=== PATIENT | male | born 1980 ===

== ENCOUNTER 2021-05-30 13:47 | Inpatient (IN) | payer OTHER ==
[2021-05-30] MEDS ORDERED: LABETALOL 5 MG/ML VIAL MDV IVP STA ×2 (14:24→15:00)
--- NOTE | 2021-05-30 14:45 | ED ---
General Adult HPI <Paola Hernandez - Last Filed: 05/30/21 16:24> - General Source: patient, RN notes reviewed, old records reviewed Mode of arrival: ambulatory Limitations: no limitations <Baltazar Pantoja - Last Filed: 05/31/21 11:20> - General Chief complaint: Neuro Symptoms/Deficit Stated complaint: HTN, L Face Numb Drooping Time Seen by Provider: 05/30/21 14:22 - History of Present Illness Initial comments: Patient is a 40-year-old male with past medical history remarkable for uncontrolled hypertension and sinus infections presents emergency Department complaining of sudden onset left-sided facial weakness and numbness starting at 11 AM. I evaluated the patient approximately 2:30 PM. I evaluated him when he was placed in a room. He states this was sudden onset. He does have a history of uncontrolled hypertension for which she does not take medications. States he has had a previous reaction to IV antihypertensive medications. He is uncertain the name. He'll ice denies any fevers, chills, sick contacts, numbness and the rest of his extremities or weakness. Denies any dysphagia or difficulty swallowing. Denies any abdominal pain, nausea, vomiting. He has no other acute complaints at this time. Patient presents for strokelike symptoms. (Baltazar Pantoja) - Related Data Home Medications Medication Instructions Recorded Confirmed D-Methorphan/PE/Acetaminophen 1 cap PO DAILY PRN 05/30/21 05/30/21 [Vicks Dayquil Liquicaps] Unknown Otc Decongestant 1 tab PO DAILY PRN 05/30/21 05/30/21 Allergies Allergy/AdvReac Type Severity Reaction Status Date / Time No Known Allergies Allergy Verified 05/30/21 15:25 Review of Systems ROS Other: All systems not noted in ROS Statement are negative. <Paola Hernandez - Last Filed: 05/30/21 16:24> ROS Other: All systems not noted in ROS Statement are negative. <Baltazar Pantoja - Last Filed: 05/31/21 11:20> ROS Statement: Those systems with pertinent positive or pertinent negative responses have been documented in the HPI. Review of Systems: CONST: Denies fever EYES: Denies blurry vision ENT: Denies nasal congestion C/V: Denies Chest pain RESP: Denies shortness of breath GI: Denies abdominal pain : Denies dysuria SKIN: Denies rash. MSK: Denies joint pain. NEURO: Endorses face numbness, facial droop on the left. (Baltazar Pantoja) Past Medical History Past Medical History: Hypertension History of Any Multi-Drug Resistant Organisms: None Reported Past Surgical History: No Surgical Hx Reported Past Psychological History: No Psychological Hx Reported Smoking Status: Never smoker Past Alcohol Use History: Rare Past Drug Use History: Marijuana - Past Family History Father Family Medical History: CVA/TIA <Baltazar Pantoja - Last Filed: 05/31/21 11:20> General Exam Limitations: no limitations <Baltazar Pantoja - Last Filed: 05/31/21 11:20> - General Exam Comments Initial Comments: General: Appears in no acute distress. HEAD: Normal with no signs of head trauma. EYES: PERRLA, EOMI, conjunctiva normal, no discharge. Pupils are 3 mm and equal bilaterally. ENT: Hearing grossly intact, normal oropharynx. RESPIRATORY: Clear breath sounds bilaterally. No wheezes, rales, or rhonchi. C/V: Regular rate and rhythm. S1 and S2 auscultated, no edema, peripheral pulses 2+ and intact throughout. Patient is hypertensive. ABD: Abd is soft, nontender, nondistended EXT: Normal range of motion, no obvious deformity SKIN: No rashes or lesions observed on exposed skin. NEURO: Alert and oriented 4. NIH is 3, 1. for sensory loss over the left face to light touch and 2 points for left-sided facial droop. Facial droop does involve the forehead as well as the eyelids on the left, making me suspicious for a peripheral nerve involvement with his current symptoms. GCS is 15. (Baltazar Pantoja) Course <Paola Hernandez - Last Filed: 05/30/21 16:24> Vital Signs 05/30/21 05/30/21 05/30/21 13:55 14:10 14:11 Temperature 98.1 F 98.1 F Pulse Rate 96 92 85 Respiratory 18 18 19 Rate Blood Pressure O2 Sat by Pulse 98 97 95 Oximetry 05/30/21 05/30/21 05/30/21 14:15 14:30 14:45 Temperature 98.1 F 98.1 F 98.1 F Pulse Rate 90 77 74 Respiratory 20 18 18 Rate Blood Pressure 255/188 229/187 249/162 O2 Sat by Pulse 97 97 96 Oximetry 05/30/21 05/30/21 05/30/21 15:00 15:15 15:30 Temperature 98.2 F 98.2 F 98.2 F Pulse Rate 68 70 67 Respiratory 24 7 L 12 Rate Blood Pressure 233/172 230/150 219/153 O2 Sat by Pulse 95 95 94 L Oximetry 05/30/21 05/30/21 05/30/21 15:45 16:00 16:15 Temperature 98.2 F Pulse Rate 66 64 74 Respiratory 19 7 L 21 Rate Blood Pressure 219/156 234/152 212/141 O2 Sat by Pulse 94 L 96 95 Oximetry 05/30/21 05/30/21 05/30/21 16:30 16:45 16:50 Temperature 98.3 F Pulse Rate 75 88 94 Respiratory 18 38 H 18 Rate Blood Pressure 202/141 202/132 181/118 O2 Sat by Pulse 96 96 96 Oximetry - Reevaluation(s) Reevaluation #1: Spoke with Dr. Castro who agreed to take the patient into the ICU 05/30/21 16:25 (Paola Hernandez) Medical Decision Making - Lab Data Result diagrams: 05/30/21 14:33 05/30/21 14:33 <Paola Hernandez - Last Filed: 05/30/21 16:24> - Lab Data Result diagrams: 05/31/21 04:28 05/31/21 04:28 - EKG Data -: EKG Interpreted by Ia <Baltazar Pantoja - Last Filed: 05/31/21 11:20> - Medical Decision Making Based on the patient's presentation and physical exam, I'm concerned for a stroke in this patient. He also appears to have a hypertensive urgency. She cut stroke was activated. He will be administered 10 mg of labetalol and reevaluated. CT imaging will be obtained in addition to stroke workup. Patient was in agreement this plan. I am suspicious for possible peripheral nerve rather than central cause for this, as the patient does have involvement of the forehead and the eyelids on the left. I spoke with Dr. Pelaez of neurointervention who was in agreement this plan. EKG showed normal sinus rhythm.Following multiple doses of labetalol, patient's blood pressure is minimally improved. EKG shows no signs of acute ischemia. Chest x-ray reveals no acute cardio pulmonary process. CT and CTA of the brain and neck revealed no acute intracranial abnormality and no acute blockage or occlusion. Laboratory studies are remarkable for an indeterminate troponin of 0.0-8. The remainder of the labs are unremarkable. On reevaluation, patient remains hypertensive despite ijeoma with labetalol. He'll be started on nicardipine drip at this time. Due to the nicardipine drip and hypertensive urgency I would like to admit the patient to ICU. I spoke with Dr. Castro who was in agreement this plan. I spoke with the primary care physician for the patient, Dr. Peterson who accepted the patient. I spoke with Dr. Pelaez who agreed that the risks outweighed the benefits far the patient in terms of TPA administration and will be held at this time. NIH remains 3. No acute intervention. Patient will be admitted for MRI and aspirin. I spoke with on-call neurology Dr. Adams who accepted the consult. Patient was therefore admitted to the ICU in serious condition. (Baltazar Pantoja) - Lab Data Lab Results 05/30/21 05/30/21 05/30/21 Range/Units 14:33 14:33 14:33 WBC 9.7 (3.8-10.6) k/uL RBC 5.41 (4.30-5.90) m/uL Hgb 17.1 (13.0-17.5) gm/dL Hct 49.3 (39.0-53.0) % MCV 91.2 (80.0-100.0) fL MCH 31.6 (25.0-35.0) pg MCHC 34.7 (31.0-37.0) g/dL RDW 12.8 (11.5-15.5) % Plt Count 215 (150-450) k/uL MPV 7.1 Neutrophils % 59 % Lymphocytes % 26 % Monocytes % 8 % Eosinophils % 3 % Basophils % 1 % Neutrophils # 5.7 (1.3-7.7) k/uL Lymphocytes # 2.6 (1.0-4.8) k/uL Monocytes # 0.8 (0-1.0) k/uL Eosinophils # 0.3 (0-0.7) k/uL Basophils # 0.1 (0-0.2) k/uL Manual Slide Review Performed RBC Morphology Normal PT 9.8 (9.0-12.0) sec INR 0.9 (<1.2) APTT 22.4 (22.0-30.0) sec Sodium 140 (137-145) mmol/L Potassium 3.5 (3.5-5.1) mmol/L Chloride 104 (98-107) mmol/L Carbon Dioxide 24 (22-30) mmol/L Anion Gap 12 mmol/L BUN 13 (9-20) mg/dL Creatinine 1.11 (0.66-1.25) mg/dL Est GFR (CKD-EPI)AfAm >90 (>60 ml/min/1.73 sqM) Est GFR (CKD-EPI)NonAf 83 (>60 ml/min/1.73 sqM) Glucose 93 (74-99) mg/dL Plasma Lactic Acid Keyur (0.7-2.0) mmol/L Calcium 10.2 (8.4-10.2) mg/dL Total Bilirubin 1.0 (0.2-1.3) mg/dL AST 33 (17-59) U/L ALT 34 (4-49) U/L Alkaline Phosphatase 114 (38-126) U/L Troponin I (0.000-0.034) ng/mL Total Protein 8.7 H (6.3-8.2) g/dL Albumin 5.1 H (3.5-5.0) g/dL Coronavirus (PCR) (Not Detectd) 05/30/21 05/30/21 05/30/21 Range/Units 14:33 14:33 16:02 WBC (3.8-10.6) k/uL RBC (4.30-5.90) m/uL Hgb (13.0-17.5) gm/dL Hct (39.0-53.0) % MCV (80.0-100.0) fL MCH (25.0-35.0) pg MCHC (31.0-37.0) g/dL RDW (11.5-15.5) % Plt Count (150-450) k/uL MPV Neutrophils % % Lymphocytes % % Monocytes % % Eosinophils % % Basophils % % Neutrophils # (1.3-7.7) k/uL Lymphocytes # (1.0-4.8) k/uL Monocytes # (0-1.0) k/uL Eosinophils # (0-0.7) k/uL Basophils # (0-0.2) k/uL Manual Slide Review RBC Morphology PT (9.0-12.0) sec INR (<1.2) APTT (22.0-30.0) sec Sodium (137-145) mmol/L Potassium (3.5-5.1) mmol/L Chloride (98-107) mmol/L Carbon Dioxide (22-30) mmol/L Anion Gap mmol/L BUN (9-20) mg/dL Creatinine (0.66-1.25) mg/dL Est GFR (CKD-EPI)AfAm (>60 ml/min/1.73 sqM) Est GFR (CKD-EPI)NonAf (>60 ml/min/1.73 sqM) Glucose (74-99) mg/dL Plasma Lactic Acid Keyur 1.3 (0.7-2.0) mmol/L Calcium (8.4-10.2) mg/dL Total Bilirubin (0.2-1.3) mg/dL AST (17-59) U/L ALT (4-49) U/L Alkaline Phosphatase (38-126) U/L Troponin I 0.028 (0.000-0.034) ng/mL Total Protein (6.3-8.2) g/dL Albumin (3.5-5.0) g/dL Coronavirus (PCR) Not Detected (Not Detectd) - EKG Data EKG Comments: 12-lead Electrocardiogram Interpretation Note EKG was reviewed and interpreted by myself. 12-lead ECG performed at 1412 is interpreted by me as revealing normal sinus rhythm at a rate of 80 beats per minute. [place] is normal. IA interval is 166 ms, QRS duration is 102 ms, QTc is 463 ms.. There were no ST or T wave abnormalities to suggest myocardial ischemia or injury. R wave progression across the precordium was satisfactory. By my interpretation this EKG is non-diagnostic for acute ischemia. (Baltazar Vallecillo) Disposition Is patient prescribed a controlled substance at d/c from ED?: No Decision to Admit Reason: Admit from EC Decision Date: 05/30/21 Decision Time: 16:25 <Paola Hernandez - Last Filed: 05/30/21 16:24> <Baltazar Pantoja - Last Filed: 05/31/21 11:20> Clinical Impression: Cerebrovascular accident (CVA), Transient cerebral ischemia, Hypertensive emergency Disposition: ADMITTED IP TO THIS HOSP Condition: Serious
[2021-05-30 14:46] LABS: ALT 34 U/L (4-49); AST 33 U/L (17-59); African American GFR (CKD) >90 (>60 ml/min/1.73 sqM); Albumin 5.1 g/dL (3.5-5.0); Alkaline Phosphatase 114 U/L (38-126); Anion Gap 12 mmol/L; Blood Urea Nitrogen 13 mg/dL (9-20); Calcium 10.2 mg/dL (8.4-10.2); Carbon Dioxide 24 mmol/L (22-30); Chloride 104 mmol/L (98-107); Glucose 93 mg/dL (74-99); Non-African American GFR(CKD) 83 (>60 ml/min/1.73 sqM); Potassium 3.5 mmol/L (3.5-5.1); Sodium 140 mmol/L (137-145); Total Protein 8.7 g/dL (6.3-8.2)
[2021-05-30 14:48] LABS: INR 0.9 (<1.2); Partial Thromboplastin Time 22.4 sec (22.0-30.0); Prothrombin Time 9.8 sec (9.0-12.0)
--- NOTE | 2021-05-30 14:54 | XR ---
EXAMINATION TYPE: XR chest 2V DATE OF EXAM: 05/30/2021 COMPARISON: NONE TECHNIQUE: PA and lateral views submitted. HISTORY: Altered mental status FINDINGS: The lungs are clear and there is no pneumothorax, pleural effusion, or focal pneumonia. Hypertrophi c change of the spine. Heart size mildly prominent. No overt failure. IMPRESSION: 1. No acute process. 2. Cardiomegaly.
[2021-05-30 14:58] LABS: Basophils # (A) 0.1 k/uL (0-0.2); Basophils % (A) 1 %; Eosinophils # (A) 0.3 k/uL (0-0.7); Eosinophils % (A) 3 %; HCT 49.3 % (39.0-53.0); HGB 17.1 gm/dL (13.0-17.5); Lymphocytes # (A) 2.6 k/uL (1.0-4.8); Lymphocytes % (A) 26 %; MCH 31.6 pg (25.0-35.0); MCHC 34.7 g/dL (31.0-37.0); MCV 91.2 fL (80.0-100.0); Mean Platelet Volume 7.1; Monocytes # (A) 0.8 k/uL (0-1.0); Monocytes % (A) 8 %; Neutrophils # (A) 5.7 k/uL (1.3-7.7); Neutrophils % (A) 59 %; Platelet Count 215 k/uL (150-450); RBC 5.41 m/uL (4.30-5.90); RDW 12.8 % (11.5-15.5); WBC 9.7 k/uL (3.8-10.6)
[2021-05-30] MEDS ORDERED: LABETALOL SYRINGE 5 MG/ML IVP STA (15:00)
--- NOTE | 2021-05-30 15:01 | CT ---
EXAMINATION TYPE: CT brain wo con for TPA, CT angio head neck DATE OF EXAM: 05/30/2021 COMPARISON: None HISTORY: 40-year-old male neurologic deficit, acute, stroke suspected, Facial droop TECHNIQUE: Examination was done in axial plane without intravenous contrast. Coronal and sagittal r econstructions performed. Subsequent scanning through the head and neck after administration of 75 mL Isovue 370 IV contrast. Coronal and sagittal MIP reconstructions performed. 3-D reconstructions gene rated on a dedicated independent workstation. CT DLP: 1106.8 mGycm Automated exposure control for dose reduction was used. FINDINGS: HEAD: There is no evidence of acute intracranial hemorrhage, acute ischemic changes, mass, mass-effect, or extra-axial fluid collection. There is no effacement of cerebral sulci or basal subarachnoid cister ns. There is no hydrocephalus. There is no midline shift. Choi-white matter distinction is preserv ed. There is subtle patchy subcortical hypodensity scattered throughout the bilateral cerebral hemisphere s. Moderate mucosal thickening throughout the maxillary sinuses, also within the right ethmoid air cells . More moderate to severe left ethmoid air cells. Mastoid air cells well pneumatized. Orbits and glob es are intact. CTA HEAD: The left vertebral artery is dominant. There is mild smooth narrowing of the distal basilar artery. Hypoplastic P1 segments and bilateral posterior cerebral arteries with persistent origin of the bilateral fire patrol. The posterior circulation remains patent. The internal carotid arteries and remainder of the anterior circulation are patent. No aneurysmal change is seen. CTA NECK: Conventional arch vessel branching anatomy. Dominant left vertebral artery. The vertebral arteries are patent throughout their course. The right common and internal carotid arteries are widely patent by NASCET criteria. Retropharyngeal course of the right common carotid artery. The left common and internal carotid arteries are patent. Prominent tortuosity upper left cervical IC A. IMPRESSION: 1. HEAD: No acute intracranial abnormality seen. Mild patchy subcortical hypodensity is somewhat more than expected given patient's age. Correlate for mild burden of chronic small vessel ischemic diseas e. Demyelinating disease could be a differential consideration. Moderate to severe chronic ethmoid an d moderate chronic maxillary sinus disease. 2. CTA HEAD: Mild smooth stenosis/narrowing distal basilar artery. Normal variation with persistent f etal origin bilateral fire patrol. No large vessel intracranial arterial occlusion, significant stenosis, or aneurysmal change is seen. 3. CTA NECK: Dominant left vertebral artery. Otherwise, widely patent vertebral and carotid arteries of the neck.
[2021-05-30] MEDS ORDERED: ASPIRIN 325 MG TAB PO STA (15:08)
[2021-05-30] MEDS: niCARdipine 20 MG in SODIUM CHLORIDE 0.9% 192 ML IV SCH ×2 (15:54→18:49)
[2021-05-30] MEDS ORDERED: NALOXONE 0.4 MG/ML 1 ML VIAL IV PRN (16:26)
[2021-05-30 17:15] LABS: Glucose,Whole Blood 103 mg/dL (75-99)
[2021-05-30] MEDS ORDERED: LABETALOL 5 MG/ML VIAL MDV IVP ONE (21:00)
--- NOTE | 2021-05-30 22:23 | MR ---
EXAMINATION TYPE: MR brain wo/w con DATE OF EXAM: 05/30/2021 COMPARISON: None HISTORY: Onset of Left sided face drooping this AM - Hx of High Blood Pressure CONTRAST: Standard multiplanar, multisequence MRI departmental protocol utilizing 10ml mL intravenous Gadavist gadolinium contrast. Ventricles have normal size. There is no mass effect nor midline shift. Diffusion images show a singl e 4 mm focus of increased signal in the right posterior temporal lobe white matter. The brainstem is intact. There is abnormal increased signal in the fuad extending into the left cereb ral peduncle measuring up to 1 cm in thickness on the T2 and FLAIR images. There is on the T2 and FLAIR images patchy areas of increased signal in the white matter adjacent to the lateral ventricles that measures up to 1 cm in thickness. Total number of lesions is approximatel y 20. These are more concentrated in the posterior temporal lobes and occipital lobes. The corpus callosum is intact. The sella turcica is normal. There is no evidence of orbital mass. The re is mucosal thickening in the ethmoid and frontal sinuses. There is mucosal thickening in the maxil kae and sphenoid sinuses. Contrast images show normal enhancement of the venous sinuses. There is no pathologic intracranial en hancement. IMPRESSION: White matter high signal foci could relate to microvascular ischemia or demyelinating disease. Pansinusitis. Single focus of increased signal on the diffusion images right posterior temporal lobe could be acute lacunar infarct or demyelinating disease. Increased signal in the fuad and in midbrain that could be demyelinating disease or microvascular isc hemia.
[2021-05-30] MEDS: SODIUM CHLORIDE 0.9% 1,000 ML IV SCH (22:45)
--- NOTE | 2021-05-30 23:07 | P.HPIM ---
History of Present Illness H&P Date: 05/30/21 Chief Complaint: Left-sided facial droop Patient is a 40-year-old male with a known history of hypertension diagnosed about 2 years ago and is currently not taking any medications presents to ER as a code stroke with complaints of left-sided facial droop and numbness started around 11 AM today. Denied any weakness in the upper or lower extremities. Denied any swallowing difficulty or slurred speech. Denied any complaints of headache. States that he had previous issues with high blood pressure and had vision changes in the left eye. Patient was diagnosed with hypertension about 2 years ago and was also seen by cardiology. Patient states that he had 2D echocardiogram and was told he had thickened left ventricle. Denied any fever or chills. No neck stiffness. No recent illnesses. No complaints of chest pain or shortness of breath. No abdominal pain. No na usea or vomiting or diarrhea. CT angiogram of the head and neck showed no acute intracranial abnormality. Mild patchy subcortical hypodensity is somewhat more than expected given patient's age. Correlate for mild burden of chronic small vessel ischemic disease. Demyelinating disease could be in differential. 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 CTA head showed mild smooth stenosis narrowing distal basilar artery. No large vessel intracranial arterial occlusion, significant stenosis or aneurysmal changes seen. CTA neck showed dominant left vertebral artery otherwise widely patent vertebral and carotid arteries of the neck. Chest x-ray showed no acute process. Cardiomegaly. EKG showed normal sinus rhythm with heart rate 80 Initial blood pressure was 255/188 with pulse of 90 and pulse ox 98% on room air. Patient was given labetalol IV 10 mg x 2 while in the ER. Laboratory showed WBC 9.7 hemoglobin 17.1 and platelets 215 Sodium 140 potassium 3.5 chloride 104 BUN 39 creatinine 1.11 Albumin 5.1 and liver enzymes not elevated and troponin 0 0.028 and COVID-19 PCR not detected. Review of Systems Constitutional: Patient denies any fever or chills . No generalized weakness or weight loss. Abdomen: Patient denied nausea vomiting and diarrhea and abdominal pain. Cardiovascular: Patient denies any chest pain or short of breath no palpitations. Respiratory: patient denied any cough or sputum production. No shortness of breath Neurologic: Patient denied any numbness or tingling headache.Left-sided facial d leeann Musculoskeletal: Patient denies any complaints of joint swelling or deformity. Skin: Negative Psychiatric: Negative Endocrine: No heat or cold intolerance. No recent weight gain. Genitourinary: No dysuria or hematuria. All other 14 point ROS negative except the above Past Medical History Past Medical History: Hypertension History of Any Multi-Drug Resistant Organisms: None Reported Past Surgical History: No Surgical Hx Reported Smoking Status: Current some day smoker - Past Family History Father Family Medical History: CVA/TIA Medications and Allergies Home Medications Medication Instructions Recorded Confirmed Type D-Methorphan/PE/Acetaminophen 1 cap PO DAILY PRN 05/30/21 05/30/21 History [Vicks Dayquil Liquicaps] Unknown Otc Decongestant 1 tab PO DAILY PRN 05/30/21 05/30/21 History Allergies Allergy/AdvReac Type Severity Reaction Status Date / Time No Known Allergies Allergy Verified 05/30/21 15:25 Physical Exam Vitals: Vital Signs Temp Pulse Resp BP Pulse Ox 05/30/21 22:15 82 18 147/112 97 05/30/21 21:30 165/111 05/30/21 21:00 150/104 05/30/21 20:45 92 23 151/98 95 05/30/21 20:30 94 26 H 152/105 94 L 05/30/21 20:15 92 28 H 168/112 96 05/30/21 20:00 97.3 F L 89 20 155/106 97 05/30/21 19:45 85 21 154/94 94 L 05/30/21 19:30 85 15 162/101 95 05/30/21 18:00 70 8 L 128/74 94 L 05/30/21 17:45 73 17 149/98 96 05/30/21 17:30 91 24 184/102 95 05/30/21 17:21 98.3 F 18 05/30/21 17:16 92 21 97 05/30/21 17:00 181/118 05/30/21 16:50 94 18 181/118 96 05/30/21 16:45 88 38 H 202/132 96 05/30/21 16:30 98.3 F 75 18 202/141 96 05/30/21 16:15 74 21 212/141 95 05/30/21 16:00 98.2 F 64 7 L 234/152 96 05/30/21 15:45 66 19 219/156 94 L 05/30/21 15:30 98.2 F 67 12 219/153 94 L 05/30/21 15:15 98.2 F 70 7 L 230/150 95 05/30/21 15:00 98.2 F 68 24 233/172 95 05/30/21 14:45 98.1 F 74 18 249/162 96 05/30/21 14:30 98.1 F 77 18 229/187 97 05/30/21 14:15 98.1 F 90 20 255/188 97 05/30/21 14:11 85 19 95 05/30/21 14:10 98.1 F 92 18 97 05/30/21 13:55 98.1 F 96 18 98 Intake and Output 05/30/21 05/30/21 05/30/21 06:59 14:59 22:59 Intake Total 923.000 Output Total 550 Balance 373.000 Intake: Intake, IV Titration 243.000 Amount niCARdipine 20 mg In 243.000 Sodium Chloride 0.9% 192 ml @ 5 MG/HR 50 mls/hr IV .Q4H [facility] Rx#:[id number] Oral 680 Output: Urine 550 Other: # Voids 1 Weight 97.9 kg 97.976 kg PHYSICAL EXAMINATION: Patient is lying in the bed comfortably, no acute distress, awake alert and oriented.. HEENT: Normocephalic. Neck is supple. Pupils reactive. Nostrils clear. Oral cavity is moist. Neck reveals no JVD, carotid bruits, or thyromegaly. CHEST EXAMINATION: Trachea is central. Symmetrical expansion. Lung wayne clear to auscultation and percussion. CARDIAC: Normal S1, S2 with no gallops. No murmurs ABDOMEN: Soft. Bowel sounds normal. No organomegaly. No abdominal bruits. Extremities: reveal no edema. No clubbing or cyanosis Neurologically awake, alert, oriented x3 Patient does have left-sided facial droop with minimal loss of nasolabial fold. No slurred speech. Muscle strength 5 out of 5 all 4 extremities. Skin: No rash or skin lesions. Psychiatric: Cooperative. Nonsuicidal Musculoskeletal: No joint swelling or deformity. Normal range of motion. Results CBC & Chem 7: 05/30/21 14:33 05/30/21 14:33 Labs: Abnormal Lab Results - Last 24 Hours (Table) 11/01/21 11/01/21 Range/Units 14:33 17:13 POC Glucose (mg/dL) 103 H (75-99) mg/dL Total Protein 8.7 H (6.3-8.2) g/dL Albumin 5.1 H (3.5-5.0) g/dL Thrombosis Risk Factor Assmnt - DVT/VTE Prophylaxis DVT/VTE Prophylaxis: Mechanical Prophylaxis ordered Assessment and Plan Assessment: Hypertensive emergency with left-sided facial droop Possible acute CVA History of hypertension and currently not taking any medications GI and DVT prophylaxis Plan: Patient will be continued on telemetry monitoring. Was given labetalol 10 mg IV push x2 while in the ER. Systolic blood pressure readings still in the 220s. Patient was started on nicardipine drip and titrate down blood pressure slowly. Neurology was consulted due to possible acute CVA. Patient will be transferred to MICU for close monitoring. Continue to follow. Discussed with the patient and his mother at bedside in detail. Time with Patient: Greater than 30
[2021-05-31] MEDS: niCARdipine 20 MG in SODIUM CHLORIDE 0.9% 192 ML IV SCH ×4 (01:56→13:53)
[2021-05-31 05:03] LABS: Basophils # (A) 0.1 k/uL (0-0.2); Basophils % (A) 1 %; Eosinophils # (A) 0.3 k/uL (0-0.7); Eosinophils % (A) 3 %; HGB 14.9 gm/dL (13.0-17.5); Lymphocytes # (A) 2.3 k/uL (1.0-4.8); Lymphocytes % (A) 24 %; MCH 31.8 pg (25.0-35.0); MCHC 34.6 g/dL (31.0-37.0); MCV 91.9 fL (80.0-100.0); Monocytes # (A) 0.7 k/uL (0-1.0); Monocytes % (A) 7 %; Neutrophils # (A) 6.2 k/uL (1.3-7.7); Neutrophils % (A) 64 %; Platelet Count 196 k/uL (150-450); RBC 4.68 m/uL (4.30-5.90); RDW 12.6 % (11.5-15.5); WBC 9.7 k/uL (3.8-10.6)
[2021-05-31 05:15] LABS: African American GFR (CKD) >90 (>60 ml/min/1.73 sqM); Anion Gap 7 mmol/L; Blood Urea Nitrogen 11 mg/dL (9-20); Carbon Dioxide 25 mmol/L (22-30); Chloride 104 mmol/L (98-107); Glucose 86 mg/dL (74-99); Non-African American GFR(CKD) >90 (>60 ml/min/1.73 sqM); Potassium 3.4 mmol/L (3.5-5.1); Sodium 136 mmol/L (137-145)
[2021-05-31] MEDS ORDERED: Potassium Replacement Protocol 1 EACH MISC MISCELLANE PRN (06:08)
[2021-05-31] MEDS: POTASSIUM CHLORIDE ER 20 MEQ TAB.ER PO SCH ×2 (06:22→09:34)
[2021-05-31] MEDS: carvediloL 6.25 MG TAB PO SCH ×2 (09:34→16:28)
[2021-05-31] MEDS: LOSARTAN-HCTZ 50-12.5 MG 1 EACH TAB PO SCH (09:34)
--- NOTE | 2021-05-31 09:47 | P.CNNES ---
History of Present Illness Consult date: 05/30/21 Requesting physician: Baltazar Pantoja Reason for Consult: CVA, possible duron's palsy History of Present Illness: Patient is a 40-year-old male with history of hypertension, noncompliant with medications, came to the hospital today at 1:47 PM for evaluation of left facial weakness. Patient states he woke up at 11 AM his morning and noticed that he could not raise his left eyebrow up. He denied any slurred speech, facial droop, double vision or any new loss of vision. Patient denies any headache, any change in taste sensation, any excessive watering of the eyes or any hearing loss or muffled hearing on excessive hearing. He does have some sinus congestion for the last few days. Patient's NIH stroke scale was noted as 3 in the ED. Stroke code was activated. Was not a candidate for TPA because his symptoms have been present for more than 4.5 hours. Patient was given aspirin the ER. Vital signs on arrival blood pressure 255/188 which came down to 2229/187 and then 249/162. Temperature 98.1 pulse rate 96. Most recent blood pressure is 181/118. Computed tomography scan of head showed no acute process. Mild patchy subcortical hypodensity is somewhat more than expected given patient's age. Correlate for mild burden of chronic small vessel ischemic disease. Demyelinating disease could be a differential consideration. 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 CTA of head showed mild smooth stenosis/narrowing distal basilar artery. Normal variation with a persistent origin bilateral [facility]. No large vessel intercranial arterial occlusion, significant stenosis or aneurysm. The area of the neck shows dominant left vertebral artery. Otherwise widely patent vertebral and carotid arteries of the neck. EKG shows normal sinus rhythm, possible left atrial enlargement. Chest x-ray shows no acute process, cardiomegaly. Blood test shows normal CBC, PT/PTT, Chem-7 20. Troponin is negative. Mondragon virus PCR negative. Patient admitted to the ICU for hypertensive emergency. Patient was started on Cardene drip. His blood pressure has come down to 138/80. Patient 10 minutes ago felt woozy when he went to the bathroom. Once he laid down, he felt better, but just while I was checking him, he again felt dizzy, started sweating. Having some difficulty with word finding. Recommended to decrease the Cardene drip to keep blood pressure between 150-170 systolic at this point. Patient was diagnosed with hypertension 3-4 years ago. He stopped taking his blood pressure medications over a year ago because of no insurance. Patient states that he had suffered from a small stroke, which affected his vision in the left lower quadrant about 3 years ago. It was felt to be related to hypertension. He denies diabetes, does not know anything about cholesterol. He smokes marijuana little bit but has not done it for last few days. No other drugs. Review of Systems Patient denies headache, no double vision. No dysphagia, no chest pain, abdominal pain nausea vomiting diarrhea, no fever or chills. All other review of systems unremarkable. Past Medical History Past Medical History: Hypertension History of Any Multi-Drug Resistant Organisms: None Reported Past Surgical History: No Surgical Hx Reported Smoking Status: Current some day smoker - Past Family History Father Family Medical History: CVA/TIA Medications and Allergies Home Medications Medication Instructions Recorded Confirmed Type D-Methorphan/PE/Acetaminophen 1 cap PO DAILY PRN 05/30/21 05/30/21 History [Vicks Dayquil Liquicaps] Unknown Otc Decongestant 1 tab PO DAILY PRN 05/30/21 05/30/21 History Allergies Allergy/AdvReac Type Severity Reaction Status Date / Time No Known Allergies Allergy Verified 05/30/21 15:25 Physical Examination - Vital Signs Vital Signs: Vital Signs Temp Pulse Resp BP Pulse Ox 05/30/21 17:21 98.3 F 18 05/30/21 16:50 94 18 181/118 96 05/30/21 15:30 98.2 F 71 18 219/156 96 05/30/21 15:15 98.2 F 69 18 219/153 96 05/30/21 15:00 98.2 F 70 18 230/150 96 05/30/21 14:45 98.1 F 74 18 249/162 96 05/30/21 14:30 98.1 F 77 18 229/187 97 05/30/21 14:15 98.1 F 90 18 255/188 98 05/30/21 14:10 98.1 F 92 18 97 05/30/21 13:55 98.1 F 96 18 98 Intake and Output 05/30/21 05/30/21 05/30/21 06:59 14:59 22:59 Intake Total 48.75 Balance 48.75 Intake: Intake, IV Titration 48.75 Amount niCARdipine 20 mg In 48.75 Sodium Chloride 0.9% 192 ml @ 5 MG/HR 50 mls/hr IV .Q4H [facility] Rx#:[id number] Other: Weight 97.9 kg 97.976 kg Patient is a young male, Patient is alert awake oriented to time place and person. Speech and language functions are normal. Patient can name and repeat very well. Attention, concentration and fund of knowledge is adequate. Patient was having some word finding problems when he was feeling dizzy and sweating,. Once the Cardene drip was decreased, his symptoms improved. 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 Patient has left facial weakness, peripheral type, tongue protrudes to the midline. Palatal elevation and sensation normal, hearing and shoulder shrug normal, facial sensation normal. Shoulder shrug normal. On muscle strength testing, there is no pronator drift and the strength is normal in arms and legs distally and proximally. Deep tendon reflexes are brisk, 3 in both upper limbs, 3+ at bilateral knees, 2+ ankles and plantars are downgoing bilaterally. Sensory to touch is equal with no neglect. Cerebellar function showed no ataxia for [id number] testing. No ataxia for [id number] testing. No dysdiadochokinesia. Tone and bulk of muscles normal. Gait normal. On general examination, there is no carotid bruit or murmur, S1-S2 audible. Abdomen is soft nontender. Chest is clear. Peripheral pulses are present. No edema. Results - Laboratory Findings CBC and BMP: 05/31/21 04:28 05/31/21 04:28 Abnormal Lab Findings: Abnormal Labs 05/30/21 05/30/21 14:33 17:13 POC Glucose (mg/dL) 103 H Total Protein 8.7 H Albumin 5.1 H Assessment and Plan Assessment: * 40-year-old male with uncontrolled hypertension, presents with left facial weakness, peripheral type. Rest of the examination is nonfocal. Patient has severe, accelerated hypertension. Rule out CVA versus Duron's palsy. Patient denies any headache, alteration in taste sensation, excessive lacrimation or hyperacusis. However he does have sinus infection, which may suggest ?Duron's palsy. CVS still needs to be ruled out. * Hypertensive emergency * Chronic hypertension, uncontrolled * Paranasal sinusitis (involving ethmoid and maxillary sinuses) * Medication noncompliance. * Marijuana use. Plan: * Patient has been started on Cardene drip for hypertensive emergency. At present patient's blood pressure has dropped down to 138/80, patient started feeling dizzy, diaphoretic. Suggested to decrease Cardene drip slightly to keep systolic blood pressure between 150-170. Then may slowly bring blood pressure down over the next 24 hours. * MRI of the brain rule out CVA * Hold off on steroids and antiviral, until CVA ruled out by MRI. * Lipid panel, hemoglobin A1c * 2-D echo. * Urine drug screen. * Telemetry monitoring * Neurology will follow.
--- NOTE | 2021-05-31 10:11 | P.CNPUL ---
History of Present Illness Consult date: 05/31/21 Requesting physician: Jarrod Peterson Reason for consult: other (Critical care management) Chief complaint: Left-sided facial weakness and droop History of present illness: This is a very pleasant 40-year-old gentleman with a known history of hypertension and previous CVA symptoms with visual disturbances approximately 3 years ago. He does have a significant history of hypertension. He has been off medication for over a year now. He had follow-up with a past physician out of town. He could not afford medication. He believes he may have been on carvedilol. He presented to the emergency room yesterday with a sudden onset of left-sided facial weakness and numbness starting at 11 AM. He arrived to the ER at 2:30. No other complaints. No headache. No blurred vision. No extremity weakness. Initial blood pressure 229/187. He was given several doses of labetalol without much improvement. He was subsequent started on nicardipine drip. Code stroke was called. CT angiogram revealed no acute intracranial abnormalities. Mild stenosis/narrowing of the distal basilar artery. Dominant left vertebral artery however widely patent vertebral and carotid arteries. Chest x-ray revealed no acute pulmonary process. Noted cardiomegaly. MRI of the brain revealed white matter high signal foci could relate to microvascular ischemia or demyelinating disease. Parasinusitis. Single focus of increased signal on diffusion images right posterior temporal lobe could be acute lacunar infarct or demyelinating disease. Increased signal in the fuad and midbrain that could be demyelinating disease or microvascular ischemia. He was admitted to the intensive care unit and is seen today in consultation. Currently he is awake and alert in no acute distress. He denies any ongoing issues with tingling or numbness of his left face. No noted droop. He remains on a nicardipine drip at 5 mg per hour. 0.9 normal saline at 75 ML's per hour. Maintaining good O2 saturations in the 90s on room air. Current blood pressure 154/95 with a mean arterial pressure of 114. Review of Systems GENERAL EXAM: Alert, active, comfortable in no apparent distress. HEAD: Normocephalic. Sudden onset of left-sided facial tingling and numbness with a droop. EYES: Normal reaction of pupils, equal size. NOSE: Clear with pink turbinates. THROAT: No erythema or exudates. NECK: No masses, no JVD. CHEST: No chest wall deformity. LUNGS: Equal air entry with no crackles, wheeze, rhonchi or dullness. CVS: S1 and S2 normal with no audible murmur, regular rhythm. ABDOMEN: No hepatosplenomegaly, normal bowel sounds, no guarding or rigidity. SPINE: No scoliosis or deformity SKIN: No rashes CENTRAL NERVOUS SYSTEM: No focal deficits, tone is normal in all 4 extremities. EXTREMITIES: There is no peripheral edema. No clubbing, no cyanosis. Peripheral pulses are intact. Past Medical History Past Medical History: Hypertension History of Any Multi-Drug Resistant Organisms: None Reported Past Surgical History: No Surgical Hx Reported Smoking Status: Current some day smoker - Past Family History Father Family Medical History: CVA/TIA Medications and Allergies Home Medications Medication Instructions Recorded Confirmed Type D-Methorphan/PE/Acetaminophen 1 cap PO DAILY PRN 05/30/21 05/30/21 History [Vicks Dayquil Liquicaps] Unknown Otc Decongestant 1 tab PO DAILY PRN 05/30/21 05/30/21 History Allergies Allergy/AdvReac Type Severity Reaction Status Date / Time No Known Allergies Allergy Verified 05/30/21 15:25 Physical Exam Vitals: Vital Signs Temp Pulse Resp BP Pulse Ox 05/31/21 07:00 81 20 154/95 94 L 05/31/21 06:45 84 19 153/104 95 05/31/21 06:30 85 16 150/91 93 L 05/31/21 06:15 81 16 130/85 95 05/31/21 06:00 92 23 140/84 92 L 05/31/21 05:45 91 22 141/93 91 L 05/31/21 05:30 92 15 146/98 92 L 05/31/21 05:15 89 19 153/91 92 L 05/31/21 05:00 88 10 L 163/94 91 L 05/31/21 04:45 81 21 157/104 96 05/31/21 04:30 84 13 155/94 96 05/31/21 04:15 83 10 L 162/104 92 L 05/31/21 04:00 98 F 85 20 145/106 93 L 05/31/21 03:45 90 32 H 152/98 94 L 05/31/21 03:30 84 23 131/81 94 L 05/31/21 03:15 84 13 129/104 93 L 05/31/21 03:00 85 20 135/107 93 L 05/31/21 02:45 84 10 L 138/80 90 L 05/31/21 02:30 85 13 139/93 93 L 05/31/21 02:15 89 20 130/74 93 L 05/31/21 02:00 92 21 121/73 94 L 05/31/21 01:45 90 21 128/76 94 L 05/31/21 01:30 92 22 125/81 94 L 05/31/21 01:15 90 19 144/87 94 L 05/31/21 01:00 93 11 L 140/91 95 05/31/21 00:45 90 21 146/95 95 05/31/21 00:30 82 20 150/102 94 L 05/31/21 00:15 89 21 139/91 93 L 05/31/21 00:00 98 F 89 23 150/97 93 L 05/30/21 23:45 89 16 153/100 95 05/30/21 23:30 93 16 148/97 93 L 05/30/21 23:15 89 33 H 151/103 95 05/30/21 23:00 88 16 148/100 96 05/30/21 22:45 82 21 155/118 96 05/30/21 22:30 88 18 163/111 96 05/30/21 22:15 82 18 147/112 97 05/30/21 21:30 165/111 05/30/21 21:00 150/104 05/30/21 20:45 92 23 151/98 95 05/30/21 20:30 94 26 H 152/105 94 L 05/30/21 20:15 92 28 H 168/112 96 05/30/21 20:00 97.3 F L 89 20 155/106 97 05/30/21 19:45 85 21 154/94 94 L 05/30/21 19:30 85 15 162/101 95 05/30/21 18:00 70 8 L 128/74 94 L 05/30/21 17:45 73 17 149/98 96 05/30/21 17:30 91 24 184/102 95 05/30/21 17:21 98.3 F 18 05/30/21 17:16 92 21 97 05/30/21 17:00 181/118 05/30/21 16:50 94 18 181/118 96 05/30/21 16:45 88 38 H 202/132 96 05/30/21 16:30 98.3 F 75 18 202/141 96 05/30/21 16:15 74 21 212/141 95 05/30/21 16:00 98.2 F 64 7 L 234/152 96 05/30/21 15:45 66 19 219/156 94 L 05/30/21 15:30 98.2 F 67 12 219/153 94 L 05/30/21 15:15 98.2 F 70 7 L 230/150 95 05/30/21 15:00 98.2 F 68 24 233/172 95 05/30/21 14:45 98.1 F 74 18 249/162 96 05/30/21 14:30 98.1 F 77 18 229/187 97 05/30/21 14:15 98.1 F 90 20 255/188 97 05/30/21 14:11 85 19 95 05/30/21 14:10 98.1 F 92 18 97 05/30/21 13:55 98.1 F 96 18 98 Intake and Output 05/30/21 05/31/21 05/31/21 22:59 06:59 14:59 Intake Total 923.000 757 276.5 Output Total 550 850 Balance 373.000 -93 276.5 Intake: IV 600 75 Sodium Chloride 0.9% 1, 600 75 000 ml @ 75 mls/hr IV . [id number] [facility] Rx#:[id number] Intake, IV Titration 243.000 157 201.5 Amount niCARdipine 20 mg In 243.000 157 201.5 Sodium Chloride 0.9% 192 ml @ 5 MG/HR 50 mls/hr IV .Q4H [facility] Rx#:[id number] Oral 680 Output: Urine 550 850 Other: # Voids 1 0 0 Weight 97.976 kg 99.6 kg GENERAL EXAM: Alert, very pleasant 40, on room air, comfortable in no apparent distress. HEAD: Normocephalic. No noted left-sided facial droop this morning. EYES: Normal reaction of pupils, equal size. NOSE: Clear with pink turbinates. THROAT: No erythema or exudates. NECK: No masses, no JVD. CHEST: No chest wall deformity. LUNGS: Equal air entry with no crackles, wheeze, rhonchi or dullness. CVS: S1 and S2 normal with no audible murmur, regular rhythm. ABDOMEN: No hepatosplenomegaly, normal bowel sounds, no guarding or rigidity. SPINE: No scoliosis or deformity SKIN: No rashes CENTRAL NERVOUS SYSTEM: No focal deficits, tone is normal in all 4 extremities. EXTREMITIES: There is no peripheral edema. No clubbing, no cyanosis. Peripheral pulses are intact. Results - Laboratory Findings CBC and BMP: 05/31/21 04:28 05/31/21 04:28 PT/INR, D-dimer PT 9.8 sec (9.0-12.0) 05/30/21 14:33 INR 0.9 (<1.2) 05/30/21 14:33 Abnormal lab findings: Abnormal Labs 05/30/21 05/30/21 05/31/21 14:33 17:13 04:28 Sodium 136 L Potassium 3.4 L POC Glucose (mg/dL) 103 H Total Protein 8.7 H Albumin 5.1 H - Diagnostic Findings Chest x-ray: image reviewed Assessment and Plan Assessment: 1 Acute left-sided facial tingling, numbness, droop secondary to hypertensive emergency. Code stroke called 05/30/2021. MRI of the brain revealed a single focus of increased signal on the diffusion images right posterior temporal lobe could be acute lacunar infarct or demyelinating disease. Symptoms have resolved. 2 Severe accelerated hypertension. Currently on nicardipine drip at 5 mg per hour, improving. 3 History of hypertension, noncompliant with medication due to cost 4 History of marijuana use 5 Paranasal sinusitis Plan: The patient was seen and evaluated by Dr. Castro CAT scan, MRI, chest x-ray and labs reviewed Initiate losartan HCT 5012.5 daily, carvedilol 6.25 mg twice a day Discontinue nicardipine drip when BP stable Could be transferred out of the ICU later today Neurology is following We will continue to follow and make further recommendations based on his clinical status I, the cosigning physician, performed a history & physical examination of the patient. Lungs sounds are clear. Maintaining good O2 saturations in the 90s on room air. I discussed the assessment and plan of care with my nurse practitioner, Fern Mary. I attest to the above consultation as dictated by her. Time with Patient: Greater than 30
[2021-05-31 10:13] LABS: Urine Alcohol Negative (Negative); Urine Barbiturate Negative (Negative); Urine Cocaine Negative (Negative); Urine Methadone Negative (Negative); Urine Opiates Negative (Negative); Urine Phencyclidine Negative (Negative)
--- NOTE | 2021-05-31 11:00 | ECHOF ---
Referral Reason:hypertensive emergency MEASUREMENTS -------- HEIGHT: 167.6 cm WEIGHT: 99.3 kg BP: 154/95 RVIDd: 3.4 cm (< 3.3) IVSd: 1.7 cm (0.6 - 1.1) LVIDd: 5.2 cm (3.9 - 5.3) LVPWd: 1.7 cm (0.6 - 1.1) IVSs: 2.3 cm LVIDs: 3.4 cm LVPWs: 2.6 cm LA Diam: 3.9 cm (2.7 - 3.8) LAESV Index (A-L): 28.98 ml/m Ao Diam: 3.6 cm (2.0 - 3.7) AV Cusp: 2.2 cm (1.5 - 2.6) MV EXCURSION: 15.271 mm (> 18.000) MV EF SLOPE: 54 mm/s (70 - 150) EPSS: 1.2 cm MV E Octavio: 0.79 m/s MV DecT: 318 ms MV A Octavio: 1.00 m/s MV E/A Ratio: 0.79 AV maxP.65 mmHg AV meanP.27 mmHg FINDINGS -------- Sinus rhythm. This was a technically good study. The left ventricular size is normal. There is severe concentric left ventricular hypertrophy. Ove rall left ventricular systolic function is normal with, an EF between 60 - 65 %. The right ventricle is mildly enlarged. Normal LA size by volume 22+/-6 ml/m2. The right atrium is normal in size. Interatrial and interventricular septum intact. There is mild aortic valve sclerosis. Trace amount of aortic regurgitation. Peak/mean gradient a cross the Aortic Valve is 19.65mmHg / 10.27mmHg. The mitral valve is normal. The tricuspid valve appears structurally normal. Unable to estimate RVSP due to inadequate TR jet s pectral doppler profile. The pulmonic valve was not well visualized. The aortic root size is normal. Normal inferior vena cava with normal inspiratory collapse consistent with estimated right atrial pre ssure of 5 mmHg. There is no pericardial effusion. CONCLUSIONS -------- 1. The left ventricular size is normal. 2. There is severe concentric left ventricular hypertrophy. 3. Overall left ventricular systolic function is normal with, an EF between 60 - 65 %. 4. The right ventricle is mildly enlarged. 5. Normal LA size by volume 22+/-6 ml/m2. 6. There is mild aortic valve sclerosis. 7. Trace amount of aortic regurgitation. 8. Peak/mean gradient across the Aortic Valve is 19.65mmHg / 10.27mmHg. 9. There is no pericardial effusion. OBSTETRICS TECH: Holly Hurt RDCS
[2021-05-31] MEDS: SODIUM CHLORIDE 0.9% 1,000 ML IV SCH (11:29)
[2021-05-31 15:27] LABS: Chol/HDL Ratio 6.49 Ratio; HDL Cholesterol 32.8 mg/dL (40.00-60.00); LDL Cholesterol,Calculated 144.4 mg/dL (0.0-131.0); VLDL Calculation 35.8 mg/dL (5.00-40.00)
[2021-05-31] MEDS: ASPIRIN 325 MG TAB PO SCH (15:27)
--- NOTE | 2021-05-31 15:50 | P.PN ---
Subjective Progress Note Date: 05/31/21 Patient was seen for a follow-up. Patient denies any dizziness, no numbness tingling, no headache. No focal symptoms. Still with mild left facial droop. Objective - Vital Signs Vital signs: Vital Signs Temp 97.9 F 05/31/21 12:00 Pulse 70 05/31/21 15:00 Resp 22 05/31/21 15:00 BP 152/99 05/31/21 15:00 Pulse Ox 97 05/31/21 15:00 Intake & Output 05/30/21 05/31/21 05/31/21 18:59 06:59 18:59 Intake Total 764.047 9911 1176.667 Output Total 1400 975 Balance 400.000 -120 201.667 Weight 97.976 kg 99.6 kg Intake: IV 600 675 Sodium Chloride 0.9% 1, 600 675 000 ml @ 75 mls/hr IV . [id number] [facility] Rx#:[id number] Intake, IV Titration 200.000 200 261.667 Amount niCARdipine 20 mg In 200.000 200 261.667 Sodium Chloride 0.9% 192 ml @ 5 MG/HR 50 mls/hr IV .Q4H [facility] Rx#:[id number] Oral 200 480 240 Output: Urine 1400 975 Other: # Voids 1 0 0 - Exam Patient is a young pleasant male, in no acute distress. Patient is alert awake oriented to time place and person. Speech and language functions are normal. Attention, concentration and fund of knowledge is adequate. On cranial examination, pupils are round and reacting to light, visual wayne are full on confrontation, extraocular muscles are intact with no nystagmus. Face had left-sided weakness, mild degree, somewhat peripheral type. His tongue protrudes to the midline. Palatal elevation and sensation normal, hearing and shoulder shrug normal, facial sensation normal. Shoulder shrug normal. On muscle strength testing, there is no pronator drift and the strength is normal in arms and legs distally and proximally. Deep tendon reflexes are brisk, plantars downgoing. Sensory to touch is equal with no neglect. Cerebellar function showed no ataxia for [id number] testing. No dysdiadochokinesia. Tone and bulk of muscles normal. Gait normal. On general examination, there is no carotid bruit or murmur, S1-S2 audible. Abdomen is soft nontender. Chest is clear. Peripheral pulses are present. No edema. - Labs CBC & Chem 7: 05/31/21 04:28 05/31/21 04:28 Labs: Abnormal Lab Results - Last 24 Hours (Table) 05/30/21 05/30/21 05/31/21 Range/Units 17:13 20:15 04:28 Sodium 136 L (137-145) mmol/L Potassium 3.4 L (3.5-5.1) mmol/L POC Glucose (mg/dL) 103 H (75-99) mg/dL Triglycerides (0.00-149.00) mg/dL Cholesterol (0.00-200.00) mg/dL LDL Cholesterol, Calc (0.0-131.0) mg/dL HDL Cholesterol (40.00-60.00) mg/dL U Cannabinoids Screen Positive A (Negative) 05/31/21 Range/Units 04:28 Sodium (137-145) mmol/L Potassium (3.5-5.1) mmol/L POC Glucose (mg/dL) (75-99) mg/dL Triglycerides 179.00 H (0.00-149.00) mg/dL Cholesterol 213.00 H (0.00-200.00) mg/dL LDL Cholesterol, Calc 144.4 H (0.0-131.0) mg/dL HDL Cholesterol 32.80 L (40.00-60.00) mg/dL U Cannabinoids Screen (Negative) Assessment and Plan Assessment: * Acute ischemic infarction, probable lacunar-type involving the right posterior temporal lobe. Patient has presented with left facial weakness. * Hypertensive emergency * Chronic hypertension, uncontrolled * Hyperlipidemia * Paranasal sinusitis (involving ethmoid and maxillary sinuses) * Medication noncompliance. * Marijuana use. Plan: * Patient is off Cardene drip. Blood pressure is well controlled. He is not symptomatic. Patient started on carvedilol and Hyzaar. * MRI of the brain positive for an acute stroke, probably small lacunar type involving the right posterior temporal lobe. Also showed some small vessel disease particularly in the fuad and periventricular white matter. * No indications for steroids, as that facial weakness is most likely due to acute CVA * Lipid panel with cholesterol 213, LDL 144, HDL 32.8 and triglycerides 179. Patient will be started on Lipitor 40 mg daily. * Hemoglobin A1c pending * 2-D echo revealed normal left-ventricular size. Severe left ventricular hypertrophy. EF is between 60-65%. Normal left atrial size. * Urine drug screen only positive for cannabinoids. * Continue Telemetry monitoring * Start PT and OT. * DVT prophylaxis with heparin subcu every 6 hours.
--- NOTE | 2021-05-31 21:03 | P.PN ---
Subjective Progress Note Date: 05/31/21 Patient is a 40-year-old male with a known history of hypertension diagnosed about 2 years ago and is currently not taking any medications presents to ER as a code stroke with complaints of left-sided facial droop and numbness started around 11 AM today. Denied any weakness in the upper or lower extremities. Denied any swallowing difficulty or slurred speech. Denied any complaints of headache. States that he had previous issues with high blood pressure and had vision changes in the left eye. Patient was diagnosed with hypertension about 2 years ago and was also seen by cardiology. Patient states that he had 2D echocardiogram and was told he had thickened left ventricle. Denied any fever or chills. No neck stiffness. No recent illnesses. No complaints of chest pain or shortness of breath. No abdominal pain. No nausea or vomiting or diarrhea. CT angiogram of the head and neck showed no acute intracranial abnormality. Mild patchy subcortical hypodensity is somewhat more than expected given patient's age. Correlate for mild burden of chronic small vessel ischemic disease. Demyelinating disease could be in differential. 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 CTA head showed mild smooth stenosis narrowing distal basilar artery. No large vessel intracranial arterial occlusion, significant stenosis or aneurysmal changes seen. CTA neck showed dominant left vertebral artery otherwise widely patent vertebral and carotid arteries of the neck. Chest x-ray showed no acute process. Cardiomegaly. EKG showed normal sinus rhythm with heart rate 80 Initial blood pressure was 255/188 with pulse of 90 and pulse ox 98% on room air. Patient was given labetalol IV 10 mg x 2 while in the ER. Laboratory showed WBC 9.7 hemoglobin 17.1 and platelets 215 Sodium 140 potassium 3.5 chloride 104 BUN 39 creatinine 1.11 Albumin 5.1 and liver enzymes not elevated and troponin 0 0.028 and COVID-19 PCR not detected. 05-31 Patient is in the MICU. Lying in the bed comfortably. Awake alert oriented x3. Left-sided facial droop with slight improvement. Blood pressure is well controlled nicardipine drip has been discontinued. Patient was transitioned to hydrochlorothiazide/lisinopril and Coreg. MRI of the brain showed single focus of increased signal on the diffusion images right posterior temporal lobe could be acute lacunar infarct or demyelinating disease. However data reviewed. Potassium was replaced. Triglycerides 179 total cholesterol 213 and LDL 144 TSH and cortisol with enlargements. UDS is positive for cannabinoids. Neurology and pulmonary is on board. Patient is being transferred out of ICU. Current medications reviewed. Objective - Vital Signs Vital signs: Vital Signs Temp 97.8 F 05/31/21 08:00 Pulse 75 05/31/21 11:15 Resp 10 L 05/31/21 11:15 BP 144/81 05/31/21 11:15 Pulse Ox 94 L 05/31/21 11:15 Intake & Output 05/30/21 05/31/21 05/31/21 18:59 06:59 18:59 Intake Total 894.343 6324 871.0 Output Total 1400 500 Balance 400.000 -120 371.0 Weight 97.976 kg 99.6 kg Intake: IV 600 375 Sodium Chloride 0.9% 1, 600 375 000 ml @ 75 mls/hr IV . [id number] JOHN Rx#:[id number] Intake, IV Titration 200.000 200 256.0 Amount niCARdipine 20 mg In 200.000 200 256.0 Sodium Chloride 0.9% 192 ml @ 5 MG/HR 50 mls/hr IV .Q4H JOHN Rx#:[id number] Oral 200 480 240 Output: Urine 1400 500 Other: # Voids 1 0 0 - Exam PHYSICAL EXAMINATION: Patient is lying in the bed comfortably, no acute distress, awake alert and oriented.. HEENT: Normocephalic. Neck is supple. Pupils reactive. Nostrils clear. Oral c avity is moist. Neck reveals no JVD, carotid bruits, or thyromegaly. CHEST EXAMINATION: Trachea is central. Symmetrical expansion. Lung wayne clear to auscultation and percussion. CARDIAC: Normal S1, S2 with no gallops. No murmurs ABDOMEN: Soft. Bowel sounds normal. No organomegaly. No abdominal bruits. Extremities: reveal no edema. No clubbing or cyanosis Neurologically awake, alert, oriented x3 Patient does have left-sided facial droop with minimal loss of nasolabial fold. No slurred speech. Muscle strength 5 out of 5 all 4 extremities. Skin: No rash or skin lesions. Psychiatric: Cooperative. Nonsuicidal Musculoskeletal: No joint swelling or deformity. Normal range of motion. - Labs CBC & Chem 7: 05/31/21 04:28 05/31/21 04:28 Labs: Abnormal Lab Results - Last 24 Hours (Table) 05/30/21 05/30/21 05/30/21 Range/Units 14:33 17:13 20:15 Sodium (137-145) mmol/L Potassium (3.5-5.1) mmol/L POC Glucose (mg/dL) 103 H (75-99) mg/dL Total Protein 8.7 H (6.3-8.2) g/dL Albumin 5.1 H (3.5-5.0) g/dL U Cannabinoids Screen Positive A (Negative) 05/31/21 Range/Units 04:28 Sodium 136 L (137-145) mmol/L Potassium 3.4 L (3.5-5.1) mmol/L POC Glucose (mg/dL) (75-99) mg/dL Total Protein (6.3-8.2) g/dL Albumin (3.5-5.0) g/dL U Cannabinoids Screen (Negative) Assessment and Plan Assessment: 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 Hypertensive emergency History of hypertension and currently not taking any medications Marijuana use GI and DVT prophylaxis Plan: Patient will be continued on telemetry monitoring. Was given labetalol 10 mg IV push x2 while in the ER. Systolic blood pressure readings still in the 220s. Patient was started on nicardipine drip and titrate down blood pressure slowly. Neurology was consulted due to possible acute CVA.MRI showed small ischemic infarct right posterior temporal lobe. McCartan drip has been discontinued and patient was started on oral antihypertensives. Patient being transferred out of ICU. Neurology is on board.
[2021-05-31] MEDS: ATORVASTATIN 40 MG TAB PO SCH (21:09)
[2021-05-31] MEDS: HEPARIN SODIUM,PORCINE/PF 5,000 UNIT/0.5 ML SYRINGE SQ SCH (21:09)
[2021-05-31] MEDS ORDERED: ALPRAZolam 0.5 MG TAB PO PRN (23:02)
[2021-05-31] MEDS ORDERED: hydrALAZINE HCL 20 MG/ML 1 ML VIAL IVP PRN (23:03)
[2021-06-01 05:30] LABS: African American GFR (CKD) >90 (>60 ml/min/1.73 sqM); Anion Gap 8 mmol/L; Blood Urea Nitrogen 15 mg/dL (9-20); Calcium 9.3 mg/dL (8.4-10.2); Carbon Dioxide 24 mmol/L (22-30); Chloride 106 mmol/L (98-107); Glucose 90 mg/dL (74-99); Non-African American GFR(CKD) 86 (>60 ml/min/1.73 sqM); Potassium 4.2 mmol/L (3.5-5.1); Sodium 138 mmol/L (137-145)
[2021-06-01] MEDS: carvediloL 6.25 MG TAB PO SCH (06:32)
[2021-06-01] MEDS: HEPARIN SODIUM,PORCINE/PF 5,000 UNIT/0.5 ML SYRINGE SQ SCH ×2 (08:10→21:18)
[2021-06-01] MEDS: ASPIRIN 325 MG TAB PO SCH (08:10)
[2021-06-01] MEDS: niCARdipine 20 MG in SODIUM CHLORIDE 0.9% 192 ML IV SCH ×3 (08:10→08:23)
[2021-06-01] MEDS: LOSARTAN-HCTZ 50-12.5 MG 1 EACH TAB PO SCH (08:10)
[2021-06-01] MEDS: SODIUM CHLORIDE 0.9% 1,000 ML IV SCH (08:12)
[2021-06-01] MEDS ORDERED: carvediloL 6.25 MG TAB PO STA (09:14)
--- NOTE | 2021-06-01 10:53 | P.PN ---
Subjective Progress Note Date: 06/01/21 Principal diagnosis: Hypertensive emergency with left-sided facial droop This is a very pleasant 40-year-old gentleman with a known history of hypertension and previous CVA symptoms with visual disturbances approximately 3 years ago. He does have a significant history of hypertension. He has been off medication for over a year now. He had follow-up with a past physician out of town. He could not afford medication. He believes he may have been on carvedilol. He presented to the emergency room yesterday with a sudden onset of left-sided facial weakness and numbness starting at 11 AM. He arrived to the ER at 2:30. No other complaints. No headache. No blurred vision. No extremity weakness. Initial blood pressure 229/187. He was given several doses of labetalol without much improvement. He was subsequent started on nicardipine drip. Code stroke was called. CT angiogram revealed no acute intracranial abnormalities. Mild stenosis/narrowing of the distal basilar artery. Dominant left vertebral artery however widely patent vertebral and carotid arteries. Chest x-ray revealed no acute pulmonary process. Noted cardiomegaly. MRI of the brain revealed white matter high signal foci could relate to microvascular ischemia or demyelinating disease. Parasinusitis. Single focus of increased signal on diffusion images right posterior temporal lobe could be acute lacunar infarct or demyelinating disease. Increased signal in the fuad and midbrain that could be demyelinating disease or microvascular ischemia. He was admitted to the intensive care unit and is seen today in consultation. Currently he is awake and alert in no acute distress. He denies any ongoing issues with tingling or numbness of his left face. No noted droop. He remains on a ni cardipine drip at 5 mg per hour. 0.9 normal saline at 75 ML's per hour. Maintaining good O2 saturations in the 90s on room air. Current blood pressure 154/95 with a mean arterial pressure of 114. Patient is seen today 06/01/2021 in follow-up in the intensive care unit. He is currently resting quite comfortably in bed. Awake and alert in no acute distress. He had some issues with anxiety last night and did require Xanax. Today he is more calm and relaxed. Still somewhat hypertensive. Blood pressure 180s over 100 prior to his morning medications. He is maintaining good O2 saturations on room air. No IV fluids. Sodium 138. Potassium 4.2. Creatinine 1.08. His medications have been adjusted. He is currently on Hyzaar 5012.5 mg daily, Coreg 6.25 mg twice a day, hydralazine 10 mg IV every 4 hours as needed. He remains on aspirin. Statins. Objective - Vital Signs Vital signs: Vital Signs Temp 97.5 F L 06/01/21 08:00 Pulse 65 06/01/21 09:00 Resp 19 06/01/21 09:00 BP 180/138 06/01/21 09:00 Pulse Ox 95 06/01/21 09:00 Intake & Output 05/31/21 06/01/21 06/01/21 18:59 06:59 18:59 Intake Total 2351.667 1100 230.5 Output Total 1475 550 0 Balance 876.667 550 230.5 Weight 100.7 kg Intake: IV 900 900 150 Sodium Chloride 0.9% 1, 900 900 150 000 ml @ 75 mls/hr IV . [id number] JOHN Rx#:[id number] Intake, IV Titration 261.667 0 80.5 Amount niCARdipine 20 mg In 261.667 0 80.5 Sodium Chloride 0.9% 192 ml @ 5 MG/HR 50 mls/hr IV .Q4H JOHN Rx#:[id number] Oral 1190 200 Output: Urine 1475 550 0 Other: # Voids 0 - Exam GENERAL EXAM: Alert, very pleasant 40-year-old male patient, on room air, comfortable in no apparent distress. HEAD: Normocephalic. No noted left-sided facial droop this morning. EYES: Normal reaction of pupils, equal size. NOSE: Clear with pink turbinates. THROAT: No erythema or exudates. NECK: No masses, no JVD. CHEST: No chest wall deformity. LUNGS: Equal air entry with no crackles, wheeze, rhonchi or dullness. CVS: S1 and S2 normal with no audible murmur, regular rhythm. ABDOMEN: No hepatosplenomegaly, normal bowel sounds, no guarding or rigidity. SPINE: No scoliosis or deformity SKIN: No rashes CENTRAL NERVOUS SYSTEM: No focal deficits, tone is normal in all 4 extremities. EXTREMITIES: There is no peripheral edema. No clubbing, no cyanosis. Peripheral pulses are intact. - Labs CBC & Chem 7: 05/31/21 04:28 06/01/21 04:34 Labs: Abnormal Lab Results - Last 24 Hours (Table) 05/31/21 Range/Units 04:28 Triglycerides 179.00 H (0.00-149.00) mg/dL Cholesterol 213.00 H (0.00-200.00) mg/dL LDL Cholesterol, Calc 144.4 H (0.0-131.0) mg/dL HDL Cholesterol 32.80 L (40.00-60.00) mg/dL Assessment and Plan Assessment: 1 Acute left-sided facial tingling, numbness, droop secondary to hypertensive emergency. Code stroke called 05/30/2021. MRI of the brain revealed a single focus of increased signal on the diffusion images right posterior temporal lobe could be acute lacunar infarct or demyelinating disease. Symptoms have resolved. 2 Severe accelerated hypertension. Currently on nicardipine drip at 5 mg per hour, improving. 3 History of hypertension, noncompliant with medication due to cost 4 History of marijuana use 5 Paranasal sinusitis Plan: The patient was seen and evaluated by Dr. Castro Still somewhat hypertensive Continue losartan HCT 5012.5 daily Increase carvedilol to 12.5 mg twice a day Discontinue nicardipine drip Could be transferred out of the ICU later today Neurology is following We will continue to follow Educated regarding the importance of medication compliance I, the cosigning physician, performed a history & physical examination of the patient. Lungs sounds are clear. Maintaining good O2 saturations in the 90s on room air. I discussed the assessment and plan of care with my nurse practitioner, Fern Mary. I attest to the above note as dictated by her.
[2021-06-01] MEDS: hydrALAZINE HCL 25 MG TAB PO SCH ×2 (13:39→21:18)
--- NOTE | 2021-06-01 13:52 | P.PN ---
Subjective Progress Note Date: 06/01/21 Patient was seen for a follow-up. Patient denies any dizziness, no numbness tingling, no headache. No focal symptoms. Left facial droop much better. Patient's blood pressure is still being managed. Patient is off Cardene drip. Objective - Vital Signs Vital signs: Vital Signs Temp 97.7 F 06/01/21 12:00 Pulse 66 06/01/21 12:00 Resp 22 06/01/21 12:00 BP 183/117 06/01/21 12:00 Pulse Ox 97 06/01/21 12:00 Intake & Output 05/31/21 06/01/21 06/01/21 18:59 06:59 18:59 Intake Total 2351.667 1100 230.5 Output Total 1475 550 375 Balance 876.667 550 -144.5 Weight 100.7 kg Intake: IV 900 900 150 Sodium Chloride 0.9% 1, 900 900 150 000 ml @ 75 mls/hr IV . [id number] JOHN Rx#:[id number] Intake, IV Titration 261.667 0 80.5 Amount niCARdipine 20 mg In 261.667 0 80.5 Sodium Chloride 0.9% 192 ml @ 5 MG/HR 50 mls/hr IV .Q4H JOHN Rx#:[id number] Oral 1190 200 Output: Urine 1475 550 375 Other: # Voids 0 1 - Exam Patient is a young pleasant male, in no acute distress. Patient is alert awake oriented to time place and person. Speech and language functions are normal. Attention, concentration and fund of knowledge is adequate. On cranial examination, pupils are round and reacting to light, visual wayne are full on confrontation, extraocular muscles are intact with no nystagmus. Left facial weakness almost resolved. His tongue protrudes to the midline. Palatal elevation and sensation normal, hearing and shoulder shrug normal, facial sensation normal. Shoulder shrug normal. On muscle strength testing, there is no pronator drift and the strength is normal in arms and legs distally and proximally. Deep tendon reflexes are brisk, plantars downgoing. Sensory to touch is equal with no neglect. Cerebellar function showed no ataxia for [id number] testing. No dysdiadochokinesia. Tone and bulk of muscles normal. Gait normal. On general examination, there is no carotid bruit or murmur, S1-S2 audible. Abdomen is soft nontender. Chest is clear. Peripheral pulses are present. No edema. - Labs CBC & Chem 7: 05/31/21 04:28 06/01/21 04:34 Labs: Abnormal Lab Results - Last 24 Hours (Table) 05/31/21 Range/Units 04:28 Triglycerides 179.00 H (0.00-149.00) mg/dL Cholesterol 213.00 H (0.00-200.00) mg/dL LDL Cholesterol, Calc 144.4 H (0.0-131.0) mg/dL HDL Cholesterol 32.80 L (40.00-60.00) mg/dL Assessment and Plan Assessment: * Acute ischemic infarction, probable lacunar-type involving the right posterior temporal lobe. Patient has presented with left facial weakness. * Hypertensive emergency * Chronic hypertension, uncontrolled * Hyperlipidemia * Paranasal sinusitis (involving ethmoid and maxillary sinuses) * Medication noncompliance. * Marijuana use. Plan: * Patient is off Cardene drip. Blood pressure is well controlled. He is not symptomatic. Patient started on carvedilol, hydralazine and Hyzaar. * MRI of the brain positive for an acute stroke, probably small lacunar type inv olving the right posterior temporal lobe. Also showed some small vessel disease particularly in the fuad and periventricular white matter. * Patient's left facial weakness likely from CVA. Patient's facial weakness and much improved. No indication for steroids. * Continue aspirin 325 mg daily. * Lipid panel with cholesterol 213, LDL 144, HDL 32.8 and triglycerides 179. Patient will be started on Lipitor 40 mg daily. * Hemoglobin A1c 4.3 normal. * 2-D echo revealed normal left-ventricular size. Severe left ventricular hypertrophy. EF is between 60-65%. Normal left atrial size. * Urine drug screen only positive for cannabinoids. * Start PT and OT. * DVT prophylaxis with heparin subcu every 6 hours.
[2021-06-01] MEDS: carvediloL 12.5 MG TAB PO SCH (16:51)
[2021-06-01] MEDS: ATORVASTATIN 40 MG TAB PO SCH (21:18)
[2021-06-02] MEDS: carvediloL 12.5 MG TAB PO SCH ×2 (06:28→16:40)
[2021-06-02] MEDS: HEPARIN SODIUM,PORCINE/PF 5,000 UNIT/0.5 ML SYRINGE SQ SCH (09:13)
[2021-06-02] MEDS: hydrALAZINE HCL 25 MG TAB PO SCH ×2 (09:13→15:17)
[2021-06-02] MEDS: ASPIRIN 325 MG TAB PO SCH (09:13)
[2021-06-02] MEDS: LOSARTAN-HCTZ 50-12.5 MG 1 EACH TAB PO SCH (09:13)
[2021-06-02 11:17] VITALS: RESP 18
--- NOTE | 2021-06-02 13:22 | P.PN ---
Subjective Progress Note Date: 06/02/21 Patient was seen for a follow-up. Patient denies any dizziness, no numbness tingling, no headache. No focal symptoms. Left facial droop much better. Patient's blood pressure is still being managed. Patient is sitting in the chair, having his lunch. Objective - Vital Signs Vital signs: Vital Signs Temp 97.9 F 06/02/21 11:16 Pulse 65 06/02/21 11:16 Resp 18 06/02/21 11:16 BP 165/109 06/02/21 11:16 Pulse Ox 99 06/02/21 11:16 Intake & Output 06/01/21 06/02/21 06/02/21 18:59 06:59 18:59 Intake Total 230.5 600 Output Total 375 Balance -144.5 600 Weight 99.2 kg Intake: IV 150 Sodium Chloride 0.9% 1, 150 000 ml @ 75 mls/hr IV . [id number] JOHN Rx#:[id number] Intake, IV Titration 80.5 Amount niCARdipine 20 mg In 80.5 Sodium Chloride 0.9% 192 ml @ 5 MG/HR 50 mls/hr IV .Q4H JOHN Rx#:[id number] Oral 600 Output: Urine 375 Other: # Voids 1 1 # Bowel Movements 1 - Exam Patient is a young pleasant male, in no acute distress. Patient is alert awake oriented to time place and person. Speech and language functions are normal. Attention, concentration and fund of knowledge is adequate. On cranial examination, pupils are round and reacting to light, visual wayne are full on confrontation, extraocular muscles are intact with no nystagmus. Left facial weakness almost resolved. His tongue protrudes to the midline. Palatal elevation and sensation normal, hearing and shoulder shrug normal, facial sensation normal. Shoulder shrug normal. On muscle strength testing, there is no pronator drift and the strength is normal in arms and legs distally and proximally. Deep tendon reflexes are brisk, plantars downgoing. Sensory to touch is equal with no neglect. Cerebellar function showed no ataxia for [id number] testing. No dysdiadochokinesia. Tone and bulk of muscles normal. Gait normal. On general examination, there is no carotid bruit or murmur, S1-S2 audible. Abdomen is soft nontender. Chest is clear. Peripheral pulses are present. No edema. - Labs CBC & Chem 7: 05/31/21 04:28 06/01/21 04:34 Assessment and Plan Assessment: * Acute ischemic infarction, probable lacunar-type involving the right posterior temporal lobe. Patient has presented with left facial weakness. * Hypertensive emergency * Chronic hypertension, uncontrolled * Hyperlipidemia * Paranasal sinusitis (involving ethmoid and maxillary sinuses) * Medication noncompliance. * Marijuana use. Plan: * Patient is off Cardene drip. Blood pressure is well controlled. He is not symptomatic. Patient started on carvedilol, hydralazine and Hyzaar. * MRI of the brain positive for an acute stroke, probably small lacunar type involving the right posterior temporal lobe. Also showed some small vessel disease particularly in the fuad and periventricular white matter. * Patient's left facial weakness likely from CVA. Patient's facial weakness is much improved. No indication for steroids. * Continue aspirin 325 mg daily. * Lipid panel with cholesterol 213, LDL 144, HDL 32.8 and triglycerides 179. Patient will be started on Lipitor 40 mg daily. * Hemoglobin A1c 4.3 normal. * 2-D echo revealed normal left-ventricular size. Severe left ventricular hypertrophy. EF is between 60-65%. Normal left atrial size. * Urine drug screen only positive for cannabinoids. * Start PT and OT. * DVT prophylaxis with heparin subcu every 6 hours. * Neurologically clear for discharge.
--- NOTE | 2021-06-02 13:46 | P.PN ---
Subjective Progress Note Date: 06/01/21 Principal diagnosis: Acute CVA Accelerated essential hypertension Patient is a 40-year-old male with a known history of hypertension diagnosed about 2 years ago and is currently not taking any medications presents to ER as a code stroke with complaints of left-sided facial droop and numbness started around 11 AM today. Denied any weakness in the upper or lower extremities. D enied any swallowing difficulty or slurred speech. Denied any complaints of headache. States that he had previous issues with high blood pressure and had vision changes in the left eye. Patient was diagnosed with hypertension about 2 years ago and was also seen by cardiology. Patient states that he had 2D echocardiogram and was told he had thickened left ventricle. Denied any fever or chills. No neck stiffness. No recent illnesses. No complaints of chest pain or shortness of breath. No abdominal pain. No nausea or vomiting or diarrhea. CT angiogram of the head and neck showed no acute intracranial abnormality. Mild patchy subcortical hypodensity is somewhat more than expected given patient's age. Correlate for mild burden of chronic small vessel ischemic disease. Demyelinating disease could be in differential. 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 CTA head showed mild smooth stenosis narrowing distal basilar artery. No large vessel intracranial arterial occlusion, significant stenosis or aneurysmal changes seen. CTA neck showed dominant left vertebral artery otherwise widely patent vertebral and carotid arteries of the neck. Chest x-ray showed no acute process. Cardiomegaly. EKG showed normal sinus rhythm with heart rate 80 Initial blood pressure was 255/188 with pulse of 90 and pulse ox 98% on room air. Patient was given labetalol IV 10 mg x 2 while in the ER. Laboratory showed WBC 9.7 hemoglobin 17.1 and platelets 215 Sodium 140 potassium 3.5 chloride 104 BUN 39 creatinine 1.11 Albumin 5.1 and liver enzymes not elevated and troponin 0 0.028 and COVID-19 PCR not detected. 05-31 Patient is in the MICU. Lying in the bed comfortably. Awake alert oriented x3. Left-sided facial droop with slight improvement. Blood pressure is well controlled nicardipine drip has been discontinued. Patient was transitioned to hydrochlorothiazide/lisinopril and Coreg. MRI of the brain showed single focus of increased signal on the diffusion images right posterior temporal lobe could be acute lacunar infarct or demyelinating disease. However data reviewed. Potassium was replaced. Triglycerides 179 total cholesterol 213 and LDL 144 TSH and cortisol with enlargements. UDS is positive for cannabinoids. Neurology and pulmonary is on board. Patient is being transferred out of ICU. 06/01/21 Patient is lying in the bed comfortably. Right-sided facial weakness is much improved. Blood pressure is still elevated. Patient is being continued on Coreg, hydrochlorothiazide/lisinopril. Continue to titrate blood pressure medications. Patient underwent 2-D echocardiogram another stroke workup has been negative. Patient to will be continued on aspirin, statins. Patient is being transferred out of ICU today. Current medications reviewed. Objective - Vital Signs Vital signs: Vital Signs Temp 97.7 F 06/01/21 20:00 Pulse 70 06/01/21 20:00 Resp 16 06/01/21 20:00 BP 175/111 06/01/21 20:00 Pulse Ox 99 06/01/21 20:00 Intake & Output 06/01/21 06/01/21 06/02/21 06:59 18:59 06:59 Intake Total 1100 230.5 Output Total 550 375 Balance 550 -144.5 Weight 100.7 kg Intake: IV 900 150 Sodium Chloride 0.9% 1, 900 150 000 ml @ 75 mls/hr IV . [id number] JOHN Rx#:[id number] Intake, IV Titration 0 80.5 Amount niCARdipine 20 mg In 0 80.5 Sodium Chloride 0.9% 192 ml @ 5 MG/HR 50 mls/hr IV .Q4H JOHN Rx#:[id number] Oral 200 Output: Urine 550 375 Other: # Voids 1 # Bowel Movements 1 - Exam PHYSICAL EXAMINATION: Patient is lying in the bed comfortably, no acute distress, awake alert and oriented.. HEENT: Normocephalic. Neck is supple. Pupils reactive. Nostrils clear. Oral cavity is moist. Neck reveals no JVD, carotid bruits, or thyromegaly. CHEST EXAMINATION: Trachea is central. Symmetrical expansion. Lung wayne clear to auscultation and percussion. CARDIAC: Normal S1, S2 with no gallops. No murmurs ABDOMEN: Soft. Bowel sounds normal. No organomegaly. No abdominal bruits. Extremities: reveal no edema. No clubbing or cyanosis Neurologically awake, alert, oriented x3 Patient does have left-sided facial droop with minimal loss of nasolabial fold. No slurred speech. Muscle strength 5 out of 5 all 4 extremities. Skin: No rash or skin lesions. Psychiatric: Cooperative. Nonsuicidal Musculoskeletal: No joint swelling or deformity. Normal range of motion. - Labs CBC & Chem 7: 05/31/21 04:28 06/01/21 04:34 Assessment and Plan Assessment: 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 Hypertensive emergency History of hypertension and currently not taking any medications Marijuana use GI and DVT prophylaxis Plan: Patient will be continued on telemetry monitoring. Was given labetalol 10 mg IV push x2 while in the ER. Systolic blood pressure readings still in the 220s. Patient was started on nicardipine drip and titrate down blood pressure slowly. Neurology was consulted due to possible acute CVA.MRI showed small ischemic infarct right posterior temporal lobe. McCartan drip has been discontinued and patient was started on oral antihypertensives. Patient being transferred out of ICU. Neurology is on board.
[2021-06-02] MEDS ORDERED: amLODIPine 5 MG TAB PO SCH (14:00)
[2021-06-02] MEDS ORDERED: NIFEdipine XL 30 MG TAB.ER.24 PO SCH (14:15)
--- NOTE | 2021-06-02 14:35 | P.PN ---
Subjective Progress Note Date: 06/02/21 Principal diagnosis: hypertensive emergency with left-sided facial droop On 06/02/2021 patient seen in follow-up on selective care unit, he is resting comfortably in bed, hemodynamically he stable, his blood pressure is improved, he is not requiring any vasoactive drips, current blood pressure is 165/109, with a mean of 127, room air pulse ox is 98%, the patient denies any shortness of breath. No complaints of chest pain. Patient is currently on carvedilol 12.5 mg twice daily, Hyzaar 5012 0.5, and hydralazine was added at 25 mg by mouth 3 times daily. Addition patient was started on Procardia XL at 30 mg daily. She has been up out of bed, ambulated, tolerated activity well. Electrolytes and renal profile are within normal limits. Objective - Vital Signs Vital signs: Vital Signs Temp 97.9 F 06/02/21 11:16 Pulse 65 06/02/21 11:16 Resp 18 06/02/21 11:16 BP 165/109 06/02/21 11:16 Pulse Ox 99 06/02/21 11:16 Intake & Output 06/01/21 06/02/21 06/02/21 18:59 06:59 18:59 Intake Total 230.5 600 Output Total 375 Balance -144.5 600 Weight 99.2 kg Intake: IV 150 Sodium Chloride 0.9% 1, 150 000 ml @ 75 mls/hr IV . [id number] JOHN Rx#:[id number] Intake, IV Titration 80.5 Amount niCARdipine 20 mg In 80.5 Sodium Chloride 0.9% 192 ml @ 5 MG/HR 50 mls/hr IV .Q4H JOHN Rx#:[id number] Oral 600 Output: Urine 375 Other: # Voids 1 1 # Bowel Movements 1 - Exam GENERAL EXAM: Alert, very pleasant, 40-year-old, comfortable in no apparent distress. HEAD: Normocephalic/atraumatic. EYES: Normal reaction of pupils, equal size. Conjunctiva pink, sclera white. NOSE: Clear with pink turbinates. THROAT: No erythema or exudates. NECK: No masses, no JVD, no thyroid enlargement, no adenopathy. CHEST: No chest wall deformity. Symmetrical expansion. LUNGS: Equal air entry with on room air, with a pulse ox of 99 , no rales, no rhonchi CVS: Regular rate and rhythm, normal S1 and S2, no gallops, no murmurs, no rubs ABDOMEN: Soft, nontender. No hepatosplenomegaly, normal bowel sounds, no guarding or rigidity. EXTREMITIES: No clubbing, no edema, no cyanosis, 2+ pulses and upper and lower extremities. MUSCULOSKELETAL: Muscle strength and tone normal. SPINE: No scoliosis or deformity SKIN: No rashes CENTRAL NERVOUS SYSTEM: Alert and oriented -3. No focal deficits, tone is normal in all 4 extremities. PSYCHIATRIC: Alert and oriented -3. Appropriate affect. Intact judgment and insight. - Labs CBC & Chem 7: 05/31/21 04:28 06/01/21 04:34 Assessment and Plan Plan: Aassessment: 1 Acute left-sided facial tingling, numbness, droop secondary to hypertensive emergency. Code stroke called 05/30/2021. MRI of the brain revealed a single focus of increased signal on the diffusion images right posterior temporal lobe could be acute lacunar infarct or demyelinating disease. Symptoms have resolved. 2 Severe accelerated hypertension. Currently on nicardipine drip at 5 mg per hour, improving. 3 History of hypertension, noncompliant with medication due to cost 4 History of marijuana use 5 Paranasal sinusitis Plan: Blood pressure has improved, however is still elevated at 160/110, and blood pressure medications are still being adjusted Patient is on a combination of carvedilol, Hyzaar, hydralazine, and Procardia Clinically stable, no complaints of shortness of breath, no chest pain Possible discharge home today I performed a history & physical examination of the patient and discussed their management with my nurse practitioner, Rosemarie Rice. I reviewed the nurse practitioner's note and agree with the documented findings and plan of care. Lung sounds are positive for clear breath sounds throughout the lung wayne. The findings and the impression was discussed with the patient. I attest to the documentation by the nurse practitioner. Time with Patient: Less than 30
[2021-06-02 15:30] VITALS: BP 161/113; PULSE 68; TEMP 98
== END 2021-06-02 17:50 | disposition home or self-care (01) | DRG 65 ==
LOC: EC 13:47 → 2SICU 16:27 → 3SCARD 06-01 17:48
PROVIDERS: ADMIT Internal Medicine; ATTEND Internal Medicine
DX: I63.81 Other cerebral infarction due to occlusion or stenosis of small artery (principal); I16.1 Hypertensive emergency; G37.9 Demyelinating disease of central nervous system, unspecified; I16.0 Hypertensive urgency; R29.810 Facial weakness; I10 Essential (primary) hypertension; J32.2 Chronic ethmoidal sinusitis; Z20.822 Contact with and (suspected) exposure to COVID-19; R03.0 Elevated blood-pressure reading, without diagnosis of hypertension; J32.0 Chronic maxillary sinusitis; E78.5 Hyperlipidemia, unspecified; R20.2 Paresthesia of skin; F41.9 Anxiety disorder, unspecified; F17.210 Nicotine dependence, cigarettes, uncomplicated; Z91.14 Patient's other noncompliance with medication regimen; Z86.73 Personal history of transient ischemic attack (TIA), and cerebral infarction without residual deficits; Z79.899 Other long term (current) drug therapy; Z79.82 Long term (current) use of aspirin; I65.1 Occlusion and stenosis of basilar artery
CPT/HCPCS: 36415; 70450; 70496; 70498; 70553; 71046; 80048; 80053; 80061; 80306; 82533; 83036; 83605; 84443; 84484; 85025; 85610; 85730; 87635; 93005; 93306; 96374; 96376; 99285

== ENCOUNTER 2024-04-28 11:01 | Emergency (ER) | payer OTHER ==
[2024-04-28 11:06] VITALS: BP 144/88; PULSE 68; RESP 16; TEMP 97.7
[2024-04-28] MEDS: SODIUM CHLORIDE 0.9% 1,000 ML IV STA (11:47)
[2024-04-28] MEDS: diphenhydrAMINE 50 MG/ML 1 ML VIAL IVP STA (11:49)
[2024-04-28] MEDS: methylPREDNISolone SOD SUCCI 125 MG/2 ML VIAL IV STA (11:52)
[2024-04-28] MEDS: ACETAMINOPHEN TAB 325 MG TAB PO STA (11:53)
[2024-04-28] MEDS: ONDANSETRON 4 MG/2 ML VIAL IVP STA (11:55)
--- NOTE | 2024-04-28 11:59 | ED ---
Headache HPI - General Chief Complaint: Headache Stated Complaint: Headache Time Seen by Provider: 04/28/24 11:56 Source: patient, RN notes reviewed Mode of arrival: ambulatory Limitations: no limitations - History of Present Illness Initial Comments: 43-year-old male presented to the ER with a chief complaint of headache. Patient states when he woke up on Sunday he noticed a headache describing it as a sharp achy pain just superior to his right eye. He states the pain has progressively worsened throughout the weekend. He states he has been taking xhql-pfy-ucrynyd baby aspirin with mild relief. His last dose was around 8 AM today. States Sunday night headaches seem to subside. When he woke up this morning headache had returned with increased intensity. He reports nausea denies vomiting. He is reporting photophobia but denies any other visual defects. No history of migraines or headaches. Patient does report a history of a stroke approximately 4 years ago. Past medical history significant of hypertension. - Related Data Previous Rx's Medication Instructions Recorded Aspirin 325 mg PO DAILY #30 tab 06/02/21 Atorvastatin [Lipitor] 40 mg PO HS #30 tab 06/02/21 Losartan-Hctz 50-12.5 mg [Hyzaar 1 each PO DAILY #30 tab 06/02/21 50-12.5] NIFEdipine XL [Procardia XL] 30 mg PO DAILY #30 tablet 06/02/21 carvediloL [Coreg*] 12.5 mg PO BID-W/MEALS #60 tab 06/02/21 Azithromycin [Zithromax Z Pack] 0 tab PO DIRECTED #6 tab 04/28/24 Allergies Allergy/AdvReac Type Severity Reaction Status Date / Time No Known Allergies Allergy Verified 05/30/21 15:25 Review of Systems ROS Statement: Those systems with pertinent positive or pertinent negative responses have been documented in the HPI. ROS Other: All systems not noted in ROS Statement are negative. Past Medical History Past Medical History: Hyperlipidemia, Hypertension History of Any Multi-Drug Resistant Organisms: None Reported Past Surgical History: No Surgical Hx Reported Past Psychological History: No Psychological Hx Reported Smoking Status: Never smoker Past Alcohol Use History: Rare Past Drug Use History: Marijuana - Past Family History Father Family Medical History: CVA/TIA General Exam Limitations: no limitations General appearance: alert, in no apparent distress Head exam: Present: atraumatic, normocephalic, normal inspection, other (No temporal artery tenderness. Tenderness to palpation of right supra orbital region. No overlying skin changes.) Eye exam: Present: normal appearance, PERRL, EOMI. Absent: scleral icterus, conjunctival injection, periorbital swelling Pupils: Present: normal accommodation ENT exam: Present: normal exam, normal oropharynx, mucous membranes moist, TM's normal bilaterally Neck exam: Present: normal inspection. Absent: tenderness, meningismus, lymphadenopathy Respiratory exam: Present: normal lung sounds bilaterally. Absent: respiratory distress, wheezes, rales, rhonchi, stridor Cardiovascular Exam: Present: regular rate, normal rhythm, normal heart sounds. Absent: systolic murmur, diastolic murmur, rubs, gallop, clicks Neurological exam: Present: alert, oriented X3, CN II-XII intact Skin exam: Present: warm, dry, intact, normal color. Absent: rash Course Vital Signs 04/28/24 11:04 Temperature 97.7 F Pulse Rate 68 Respiratory 16 Rate Blood Pressure 144/88 O2 Sat by Pulse 99 Oximetry Medical Decision Making - Medical Decision Making Was pt. sent in by a medical professional or institution (, PA, SOFTWARE ASSET MANAGEMENT ANALYST, urgent care, hospital, or group home...) When possible be specific @ -No Did you speak to anyone other than the patient for history (EMS, parent, family, police, friend...)? What history was obtained from this source @ -No Did you review nursing and triage notes (agree or disagree)? Why? @ -I reviewed and agree with nursing and triage notes Were old charts reviewed (outside hosp., previous admission, EMS record, old EKG, old radiological studies, urgent care reports/EKG's, group home records)? Report findings @ -No old charts were reviewed Differential Diagnosis (chest pain, altered mental status, abdominal pain women, abdominal pain men, vaginal bleeding, weakness, fever, dyspnea, syncope, headache, dizziness, GI bleed, back pain, seizure, CVA, palpatations, mental health, musculoskeletal)? @ -Differential Headache: Migraine, tension, cluster, carbon monoxide, central venous thrombosis, pension karma temporal arteritis, acute closure glaucoma, intercranial hemorrhage, mastoiditis, sinusitis, head injury, this is not meant to be an all-inclusive list. EKG interpreted by me (3pts min.). @ -None none X-rays interpreted by me (1pt min.). @ -None done CT interpreted by me (1pt min.). @ -CT brain negative for acute intracranial process. Worsening complete opacification of the right maxillary sinus and right frontal sinus with moderate opacification of the right anterior ethmoid sinus. Findings suggest acute on chronic sinus situs possibly related to periodontal disease. U/S interpreted by me (1pt. min.). @ -None done What testing was considered but not performed or refused? (CT, X-rays, U/S, labs)? Why? @ -None What meds were considered but not given or refused? Why? @ -None Did you discuss the management of the patient with other professionals (professionals i.e. , PA, SOFTWARE ASSET MANAGEMENT ANALYST, lab, RT, psych nurse, social professionals, copy and print associate, teacher, deportation officer, social work case manager)? Give summary @ -No Was smoking cessation discussed for >3mins.? @ -No Was critical care preformed (if so, how long)? @ -No Were there social determinants of health that impacted care today? How? (Homelessness, low income, unemployed, alcoholism, drug addiction, transportation, low edu. Level, literacy, decrease access to med. care, senior care, rehab)? @ -No Was there de-escalation of care discussed even if they declined (Discuss DNR or withdrawal of care, Hospice)? DNR status @ -No What co-morbidities impacted this encounter? (DM, HTN, Smoking, COPD, CAD, Cancer, CVA, ARF, Chemo, Hep., AIDS, mental health diagnosis, sleep apnea, morbid obesity)? @ -None Was patient admitted / discharged? Hospital course, mention meds given and route, prescriptions, significant lab abnormalities, going to OR and other pertinent info. @ -Discharged. 43 year old male presenting to the ER with a chief complaint of a headache. History and physical exam completed. Vitals within normal limits. No acute neurological findings on exam. There is tenderness to right supraorbital region. No overlying skin changes. Viral swabs and CT brain will be performed with symptomatic treatment. Patient is agreeable to this plan. Viral swabs are negative. CT brain showed worsening complete opacification of right maxillary sinus and right frontal sinus with moderate opacification of the right anterior ethmoid sinus. Due to concern of infection with worsening sinusitis due to periodontal disease patient will be started on azithromycin. Patient received PO tylenol and IV fluids, Benadryl, Solu-Medrol and Zofran for symptom control in the ER. Upon reevaluation, patient resting comfortably in exam room reporting improvement of symptoms stating that he has been able to sleep well in the ER. Results discussed with patient, all questions answered. Advise close follow-up with a dentist and PCP. Strict return parameters discussed. Patient discharged in stable condition. Patient verbally expressed understanding and agreement with care plan. Case discussed with ED attending by Dr. Hernandez. Undiagnosed new problem with uncertain prognosis? @ -No Drug Therapy requiring intensive monitoring for toxicity (Heparin, Nitro, Insulin, Cardizem)? @ -No Were any procedures done? @ -No Diagnosis/symptom? @ -Sinusitis Acute, or Chronic, or Acute on Chronic? @ -Acute on chronic Uncomplicated (without systemic symptoms) or Complicated (systemic symptoms)? @ -Uncomplicated Side effects of treatment? @ -No Exacerbation, Progression, or Severe Exacerbation? @ -No Poses a threat to life or bodily function? How? (Chest pain, [place], CA, pneumonia, PE, COPD, DKA, ARF, appy, cholecystitis, CVA, Diverticulitis, Homicidal, Suicidal, threat to staff... and all critical care pts) @ -No - Lab Data Lab Results 04/28/24 Range/Units 12:02 Influenza Type A (PCR) Not Detected (Not Detectd) Influenza Type B (PCR) Not Detected (Not Detectd) RSV (PCR) Not Detected (Not Detectd) SARS-CoV-2 (PCR) Not Detected (Not Detectd) - Radiology Data Radiology results: report reviewed, image reviewed Disposition Clinical Impression: Chronic sinusitis Disposition: HOME SELF-CARE Condition: Stable Instructions (If sedation given, give patient instructions): Acute Headache (ED) Additional Instructions: Complete full course of antibiotics. You may take ogwh-kok-qkargaz ibuprofen and Tylenol for pain control. I also recommended oapm-iju-dpbmfeg antihistamine (Zyrtec/Claritin). Follow-up with PCP. Return to the ER for any new or worsening concerns. Prescriptions: Azithromycin [Zithromax Z Pack] 0 tab PO DIRECTED #6 tab Is patient prescribed a controlled substance at d/c from ED?: No Referrals: Nonstaff,Physician [Primary Care Provider] - 1-2 days Forms: Area PCPs Time of Disposition: 13:27
--- NOTE | 2024-04-28 13:06 | CT ---
EXAMINATION TYPE: CT brain wo con CT DLP: 1145 mGycm, Automated exposure control for dose reduction was used. DATE OF EXAM: 04/28/2024 12:56 PM COMPARISON: CT brain 05/30/2021 CLINICAL INDICATION:Male, 43 years old with history of Headache, Headache x 1day TECHNIQUE: Brain: Multiple axial CT images of the brain were obtained without IV contrast. . Coronal and sagitta l reformats reviewed. FINDINGS: Brain: Extra-axial spaces: No abnormal extra-axial fluid collections. Ventricular system: Within normal limits Cerebral parenchyma: No acute intraparenchymal hemorrhage or mass effect. The kinney-white junction is well differentiated. Scattered hypoattenuating areas are seen within the periventricular white matte r. Cerebellum: Unremarkable. Mass effect: No evidence of midline shift. Intracranial vasculature: unremarkable Soft tissues: Normal. Calvarium/osseous structures: No depressed skull fracture. Apical lucency involving the right maxilla ry second and third molars. Paranasal sinuses and mastoid air cells: Severe cells are clear. Sphenoid sinus is clear. Left ethmoi d sinus clear. Left frontal sinus is clear. Complete opacification of the right frontal sinus and rig ht maxillary sinus. There is also moderate opacification of the right anterior ethmoid sinus. Left ma xillary sinus is clear. Some trace hyperdense debris is identified within the right maxillary sinus. Visualized orbits: Orbital contents are intact. IMPRESSION: 1. No acute intracranial process. 2. Nonspecific periventricular white matter changes, likely secondary to chronic small vessel ischemi c disease versus other etiologies such as demyelination. 3. Worsening complete opacification of the right maxillary sinus and right frontal sinus with moderat e opacification of the right anterior ethmoid sinus. Additionally there is periapical lucency involvi ng the right maxillary molars. Findings suggest acute on chronic sinusitis possibly related to period ontal disease. Dental evaluation is recommended. [facility], , 04/28/2024 1:04 PM
== END 2024-04-28 13:44 | disposition home or self-care (01) ==
LOC: EC 11:01
DX: J32.9 Chronic sinusitis, unspecified (principal)
CPT/HCPCS: 87636; 70450; 99284; 96374; 96375 ×2; 96361; J1200; J2405; J2919; 99285